=== PATIENT | female | born 1945 | race American Indian/Alaskan Native ===

== ENCOUNTER 2017-05-03 16:05 | Emergency (ER) | payer MEDICARE ==
[2017-05-03 16:43] VITALS: BP 147/98
[2017-05-03 17:38] LABS: Bilirubin,Urine NEG (Negative); Blood,Urine NEG (Negative); Ketones,Urine NEG (Negative); Leukocyte Esterase,Urine NEG (Negative); Mucus,Urine 2+ /HPF; Nitrite,Urine NEG (Negative)
[2017-05-03] MEDS ORDERED: ULTRAM PO ONE (17:49)
[2017-05-03 17:58] LABS: Basophils % (Auto) 0.3 % (0.0-1.8); Eosinophils % (Auto) 5.7 % (0.0-4.3); Hemoglobin 13.3 gm/dl (10.1-14.3); Mean Corpuscular HGB Conc 33 % (30-34); Mean Corpuscular Hemoglobin 29 pg (28-32); Mean Corpuscular Volume 89 fl (79-97); Platelet Count 291 K/mm3 (140-440); Red Blood Count 4.64 M/mm3 (3.65-5.03); Red Cell Distribution Width 15.8 % (13.2-15.2); White Blood Count 9.6 K/mm3 (4.5-11.0)
[2017-05-03 18:05] LABS: Anion Gap 19 mmol/L; Blood Urea Nitrogen 18 mg/dL (7-17); Carbon Dioxide 25 mmol/L (22-30); Chloride 103.3 mmol/L (98-107); Glucose 119 mg/dL (65-100); Potassium 3.5 mmol/L (3.6-5.0); Sodium 144 mmol/L (137-145)
[2017-05-03] MEDS ORDERED: K-DUR PO ONE (18:16)
[2017-05-03 18:30] LABS: Erythrocyte Sedimentation Rate 38 mm/Hr (0-20)
--- NOTE | 2017-05-03 18:42 | Emergency Department Report ---
ED Lower Extremity HPI - General Chief Complaint: Fall Stated Complaint: LEFT KNEE PAIN/SWELLING Time Seen by Provider: 05/03/17 16:40 Source: family, EMS Mode of arrival: Stretcher Limitations: Altered Mental Status, Physical Limitation - History of Present Illness Initial Comments: 71-year-old female with a past medical history of Alzheimer's dementia, previous CVA/TIA, and hypertension presents to Hospital complaints of persistent left knee pain status post fall 2 months ago. Patient has not been able to view weight due to pain last 2 weeks. She typically walks with a walker. No recent fall reported. Patient has not followed up regarding this knee injury/pain. Daughter states that the last several days patient has had decreased by mouth intake. No fever reported. Patient receives home hospice care for dementia. - Related Data Allergies Allergy/AdvReac Type Severity Reaction Status Date / Time No Known Allergies Allergy Unverified 05/03/17 16:43 ED Review of Systems ROS: Stated complaint: LEFT KNEE PAIN/SWELLING Other details as noted in HPI Comment: All other systems reviewed and negative Other: Constitutional: No fevers chills Eyes: No eye pain visual changes ENT: No ear pain or throat pain Neck: Denies pain Respiratory: Denies cough wheezing shortness of breath Cardiovascular: Denies chest pain, palpitations, syncope GI: Denies abdominal pain, nausea, vomiting, diarrhea : Denies dysuri Musculoskeletal: Denies back pain Skin: Denies rash, lesions, erythema Neurologic: Denies headache, numbness, weakness ED Past Medical Hx - Past Medical History Hx Hypertension: Yes Hx CVA: Yes (TIA) Hx Dementia: Yes Additional medical history: PVD, hernia - Surgical History Past Surgical History?: No - Social History Smoking Status: Never Smoker Substance Use Type: None ED Physical Exam - General Limitations: Altered Mental Status, Physical Limitation - Other Other exam information: General: No limitations, patient is alert in no acute distress Head exam: Atraumatic, normocephalic Eyes exam: Normal appearance ENT: Moist mucous membrane, normal oropharynx Neck exam: Normal inspection, full range of motion, no meningismus nontender Respiratory exam: Clear to auscultation bilateral, no wheezes, rales, crackles Cardiovascular: Normal rate and rhythm, normal heart sounds Abdomen: Soft, nondistended, and nontender, with normal bowel sounds, no rebound, or guarding Extremity: Mild left knee swelling and warmth. Positive grimace with flexion. Patient also grimaces when attempting to move her left hip and knee. No erythema. 2+ DP pulse Back: Normal Inspection, full range of motion, no tenderness Neurologic: Alert, equal hand underwriting support specialist and foot dorsiflexion Psychiatric: normal affect, normal mood Skin: Warm, dry, intact ED Course Vital Signs 05/03/17 05/03/17 05/03/17 16:32 16:33 16:38 Temperature 98.3 F Pulse Rate 96 H Respiratory 18 Rate Blood Pressure 147/98 147/98 147/98 O2 Sat by Pulse 97 97 100 Oximetry 05/03/17 05/03/17 05/03/17 16:40 16:42 16:44 Temperature Pulse Rate Respiratory Rate Blood Pressure 147/98 147/98 147/98 O2 Sat by Pulse 97 97 96 Oximetry 05/03/17 05/03/17 05/03/17 16:46 16:48 16:50 Temperature Pulse Rate Respiratory Rate Blood Pressure 147/98 147/98 O2 Sat by Pulse 96 97 97 Oximetry 05/03/17 05/03/17 05/03/17 16:51 16:53 16:55 Temperature Pulse Rate Respiratory Rate Blood Pressure O2 Sat by Pulse 98 96 98 Oximetry 05/03/17 05/03/17 05/03/17 16:57 16:59 17:01 Temperature Pulse Rate Respiratory Rate Blood Pressure 147/98 O2 Sat by Pulse 98 98 99 Oximetry 05/03/17 05/03/17 05/03/17 17:03 17:05 17:07 Temperature Pulse Rate Respiratory Rate Blood Pressure 147/98 147/98 147/98 O2 Sat by Pulse 99 98 99 Oximetry 05/03/17 05/03/17 05/03/17 17:09 17:10 17:11 Temperature Pulse Rate Respiratory Rate Blood Pressure 147/98 147/98 147/98 O2 Sat by Pulse 98 99 99 Oximetry 05/03/17 05/03/17 05/03/17 17:18 17:33 18:01 Temperature Pulse Rate Respiratory 16 Rate Blood Pressure 147/98 147/98 O2 Sat by Pulse 97 99 97 Oximetry 05/03/17 18:31 Temperature Pulse Rate Respiratory Rate Blood Pressure 147/98 O2 Sat by Pulse 98 Oximetry - Reevaluation(s) Reevaluation #1: 05/03/17 18:44 Patient received tramadol, Toradol, potassium ED Lower Extremity MDM - Lab Data Result diagrams: 05/03/17 17:35 05/03/17 17:35 Lab Results 05/03/17 05/03/17 05/03/17 Range/Units 17:11 17:35 17:35 WBC 9.6 (4.5-11.0) K/mm3 RBC 4.64 (3.65-5.03) M/mm3 Hgb 13.3 (10.1-14.3) gm/dl Hct 41.0 (30.3-42.9) % MCV 89 (79-97) fl MCH 29 (28-32) pg MCHC 33 (30-34) % RDW 15.8 H (13.2-15.2) % Plt Count 291 (140-440) K/mm3 Lymph % (Auto) 30.6 (13.4-35.0) % [place] % (Auto) 6.4 (0.0-7.3) % Eos % (Auto) 5.7 H (0.0-4.3) % Baso % (Auto) 0.3 (0.0-1.8) % Lymph # 2.9 (1.2-5.4) K/mm3 [place] # 0.6 (0.0-0.8) K/mm3 Eos # 0.5 H (0.0-0.4) K/mm3 Baso # 0.0 (0.0-0.1) K/mm3 Seg Neutrophils % 57.0 (40.0-70.0) % Seg Neutrophils # 5.5 (1.8-7.7) K/mm3 ESR 38 (0-20) mm/Hr Sodium 144 (137-145) mmol/L Potassium 3.5 L (3.6-5.0) mmol/L Chloride 103.3 (98-107) mmol/L Carbon Dioxide 25 (22-30) mmol/L Anion Gap 19 mmol/L BUN 18 H (7-17) mg/dL Creatinine 1.0 (0.7-1.2) mg/dL Estimated GFR > 60 ml/min BUN/Creatinine Ratio 18.00 % Glucose 119 H (65-100) mg/dL Calcium 9.0 (8.4-10.2) mg/dL Urine Color [place] (Yellow) Urine Turbidity Clear (Clear) Urine pH 5.0 (5.0-7.0) Ur Specific [place] 1.032 H (1.003-1.030) Urine Protein 30 mg/dl (Negative) mg/dL Urine Glucose (UA) Neg (Negative) mg/dL Urine Ketones Neg (Negative) mg/dL Urine Blood Neg (Negative) Urine Nitrite Neg (Negative) Urine Bilirubin Neg (Negative) Urine Urobilinogen 4.0 (<2.0) mg/dL Ur Leukocyte Esterase Neg (Negative) Urine WBC (Auto) 6.0 (0.0-6.0) /HPF Urine RBC (Auto) 42.0 (0.0-6.0) /HPF U Epithel Cells (Auto) < 1.0 (0-13.0) /HPF Urine Mucus 2+ /HPF - Radiology Data Radiology results: report reviewed - Differential Diagnosis infection, UTI, septic arthritis, degenerative changes, fracture Critical Care Time: No Critical care attestation.: If time is entered above; I have spent that time in minutes in the direct care of this critically ill patient, excluding procedure time. ED Disposition Clinical Impression: Dementia Degenerative arthritis of knee Qualifiers: Laterality: left Disposition: DC-01 TO HOME OR SELFCARE Is pt being admited?: No Does the pt Need Aspirin: No Condition: Stable Instructions: Knee Pain (ED), Osteoarthritis (ED), Dementia (ED) Additional Instructions: Continue current tramadol and meloxicam for pain. Follow-up with the orthopedic doctor and primary care doctor. Return if symptoms worsen. Referrals: PRIMARY MD MARCIO [Primary Care Provider] - 3-5 Days MARGARET STEWART MD [Staff Physician] - 3-5 Days Time of Disposition: 18:55
[2017-05-03] MEDS ORDERED: TORADOL IM ONE (18:43)
[2017-05-03] MEDS ORDERED: KCL NICU (2 MEQ/ML) PO ONE (19:00)
[2017-05-03] MEDS ORDERED: POTASSIUM CHLORIDE PO ONE (19:00)
--- NOTE | 2017-05-04 08:52 | XRay Report ---
LEFT HIP: Pain. The bony architecture is intact without evidence of fracture or dislocation. Degenerative changes however are present in the lower lumbar spine. No significant soft tissue abnormality is seen. IMPRESSION: Normal left hip. Abnormal lumbar spine. Left knee: Pain and swelling. Periarticular spurs are present involving both compartments slightly worse medially. The articular margins do appear smooth. The medial joint space is narrowed. There is retro-patella narrowing consistent with chondromalacia. There is no obvious swelling or effusion. Scattered vascular calcifications are present. Impressions: Degenerative changes of both medial and lateral compartments as well as retro-patella chondromalacia.
== END 2017-05-03 19:30 | disposition home or self-care (01) ==
LOC: ED 16:05
DX: M17.12 Unilateral primary osteoarthritis, left knee (principal); F03.90 Unspecified dementia, unspecified severity, without behavioral disturbance, psychotic disturbance, mood disturbance, and anxiety; Z86.73 Personal history of transient ischemic attack (TIA), and cerebral infarction without residual deficits; I10 Essential (primary) hypertension
CPT/HCPCS: 36415; 73502; 73562; 80048; 81001; 85025; 85652; 96372; 99284; J1885; J3480